=== PATIENT | female | born 2000 | race Caucasian/White ===

== ENCOUNTER 2020-07-16 00:03 | Emergency (ER) | payer OTHER, SELFPAY ==
--- NOTE | 2020-07-16 | XR_ITS ---
EXAMINATION: SHOULDER 3 VIEWS, LEFT CLINICAL INFORMATION: Pain after fall. COMPARISON: None. TECHNIQUE: AP views of the left shoulder were obtained in internal and external rotation. In addition, a Y view was obtained. FINDINGS: There are no fractures or dislocations. The humeral head is seated within a well-formed glenoid. The AC joint is intact. IMPRESSION: Unremarkable left shoulder radiographs.
[2020-07-16 00:36] VITALS: BP 112/74; PULSE 74; RESP 14; TEMP 37.4; BMI 22.3
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
[2020-07-16] MEDS: Acetaminophen 325 MG TABLET 975 MG PO (01:59)
[2020-07-16] MEDS: Ketorolac Tromethamine 15 MG/ML VIAL IM (02:00)
== END 2020-07-16 03:17 | disposition home or self-care (01) ==
PROVIDERS: Emergency Provider Student in an Organized Health Care Education/Training Program
DX: G89.11 Acute pain due to trauma (principal); M25.512 Pain in left shoulder
CPT/HCPCS: 73030; 96372; 99283; 99284; J1885

== ENCOUNTER 2020-12-06 12:25 | Outpatient (REF) | payer OTHER, SELFPAY ==
[2020-12-06 14:01] LABS: MANUAL DIFF FLAG NO
[2020-12-06 14:11] LABS: Basophils Percent Auto 0.2 % (0-2); Eosinophils Percent Auto 0.7 % (0-4); Hematocrit 42.7 % (37-47); Hemoglobin 14.6 g/dl (12.0-16.0); Imm Gran Abs Auto 0.01 X10*3/uL (0.00-0.03); Imm Gran Pct Auto 0.2 % (0.0-0.4); Lymphocytes Absolute Auto 1.5 X10*3/uL (1.2-4.9); Lymphocytes Percent Auto 33.8 % (20-40); Mean Corpuscular HGB Conc 34.2 g/dl (31.0-35.0); Mean Corpuscular Hemoglobin 31.2 pg (27.0-33.0); Mean Corpuscular Volume 91.2 fL (80-98); Mean Platelet Volume 10.8 fL (9.4-12.3); Monocytes Absolute Auto 0.2 X10*3/uL (0.1-1.2); Monocytes Percent Auto 3.9 % (2-11); Neutrophils Absolute Auto 2.8 X10*3/uL (2.0-8.3); Neutrophils Percent Auto 61.2 % (45-73); Platelet Count 310 X10*3/uL (160-400); Red Blood Count 4.68 X10*6/uL (4.20-5.50); Red Cell Distribution Width 12.7 % (11.0-16.0); White Blood Count 4.6 X10*3/uL (4.8-10.8)
[2020-12-06 14:42] LABS: Alanine Aminotransferase 22 U/L (0-31); Albumin Level 4.7 g/dL (3.5-5.0); Alkaline Phosphatase 84 U/L (39-117); Anion Gap 14 (12-20); Aspartate Amino Transferase 21 U/L (5-31); Bilirubin Total 0.5 mg/dL (0.0-1.0); Blood Urea Nitrogen 8 mg/dL (9-16); Calcium 9.6 mg/dL (8.4-10.2); Carbon Dioxide 26 mmol/L (22-29); Chloride 103 mmol/L (96-108); Estimated Glomerular Filt Rate > 60; Glucose Random 86 mg/dL (60-115); Potassium 4.5 mmol/L (3.3-5.1); Sodium 138 mmol/L (135-145)
== END 2020-12-06 12:26 | disposition home or self-care (01) ==
LOC: HO.HMGCLDS 12:25
PROVIDERS: Visit Provider Nurse Practitioner Family
DX: R10.13 Epigastric pain (principal)
CPT/HCPCS: 36415; 80053; 85025

== ENCOUNTER 2020-12-06 17:13 | Emergency (ER) | payer OTHER, SELFPAY ==
--- NOTE | ~2020-12-06 | CT_ITS ---
EXAMINATION: CT ABDOMEN AND PELVIS WITH CONTRAST CLINICAL INFORMATION: The epigastric/right lower quadrant pain COMPARISON: None TECHNIQUE: Multidetector volumetric images were obtained from the superior aspect of the liver through the pubic symphysis following administration 85 mL of Omnipaque 350 intravenous contrast. Sagittal and coronal reformatted images were obtained on the technologist's workstation. Oral contrast: No This CT examination was performed using dose optimization techniques as appropriate, variously including the following: *Automated exposure control *Adjustment of mA and/or kV according to patient size (this includes techniques or standardized protocols for targeted exams where dose is matched to indication/reason for exam; i.e. extremities or head) *Use of iterative reconstruction technique DLP: 361 mGy-cm FINDINGS: LUNG BASES: The visualized lung bases are unremarkable. LIVER, GALLBLADDER, AND BILIARY TREE: The liver is normal in size, shape, and attenuation. No focal hepatic lesion or biliary ductal dilatation is present. The gallbladder is contracted but otherwise unremarkable with no evidence of radiopaque gallstones, gallbladder wall thickening, or obvious pericholecystic inflammatory changes. PANCREAS: Unremarkable. SPLEEN: Unremarkable. ADRENAL GLANDS: Unremarkable. KIDNEYS AND URETERS: The kidneys are normal in size, shape, and attenuation. No hydronephrosis, hydroureter, or calculi seen. No perinephric stranding. BLADDER: Unremarkable. GASTROINTESTINAL TRACT: A small hiatal hernia is present. A large stool burden is present throughout the colon. The small and large bowel are otherwise unremarkable. The appendix is unremarkable. ABDOMINAL WALL: No significant hernia is appreciated. LYMPH NODES: Normal. VASCULAR: Unremarkable. PELVIC VISCERA: An anteverted uterus is present. A collapsed enhancing right ovarian cyst is present OSSEOUS STRUCTURES: Unremarkable. CT/CT abdomen pelvis w IV con IMPRESSION: A definitive cause for the patient's acute epigastric/right lower quadrant pain has not been found. The appendix is normal. There is a cyst in the right adnexa which appears to be partially collapsed. Possibly this could be related to the patient's pain.
[2020-12-06 18:37] VITALS: BP 115/79; PULSE 93; RESP 16; TEMP 36.7; O2SAT 100; BMI 23.0
[2020-12-06] MEDS: 0.9 % Sodium Chloride 1,000 ML 999 ML IV (18:58)
[2020-12-06 19:03] LABS: UPreg QC Valid YES; Urine Pregnancy NEGATIVE (NEGATIVE)
[2020-12-06 19:30] LABS: Glucose Urine UA NEG (NEG); Leukocyte Esterase Urine NEG (NEG); Nitrite Urine NEG (NEG); Urine Blood NEG (NEG); Urine Ketones NEG (NEG); Urine Protein NEG (NEG-TRACE)
[2020-12-06 19:31] LABS: Appearance Urine CLOUDY; Color Urine YELLOW
[2020-12-06 20:01] VITALS: BP 106/64; PULSE 87; RESP 15; O2SAT 98
[2020-12-06] MEDS: iohexoL 350 MG/ML 100 ML INFUS..BTL IV (20:06)
--- NOTE | 2020-12-06 21:00 | ED_ITS ---
HPI - Abdominal Pain General Chief Complaint: Abdominal Pain Stated Complaint: Abd pain Time Seen by Provider: 12/06/20 18:26 Source: patient Mode of arrival: ambulatory Limitations: no limitations History of Present Illness HPI narrative: Otherwise healthy 20-year-old female who denies significant past medical or surgical history presenting with complaint of diffuse abdominal pain for the past 5 days states she has not had a bowel movement and about 5 or 6 days. States she was seen at Urgent Care today however pain persist and she does not feel better. There is some associated nausea. States she never had issues with constipation. There is no current medications or any new dietary changes. MD elicited complaint: abdominal pain Pertinent past history: constipation Onset (ago): day(s) (Five days) Location: diffuse Severity: severe Quality: aching and fullness Radiation: none Migration to: no migration Associated symptoms: nausea Related Data Previous Rx's Medication Instructions Recorded ketorolac 10 mg PO Q6H PRN 5 Days #20 tab 07/16/20 famotidine 20 mg tablet 20 mg PO DAILY #30 tab 12/06/20 magnesium citrate 300 ml PO DAILY PRN #296 ml 12/06/20 ondansetron 4 mg disintegrating 4 mg PO Q6H PRN #30 tab 12/06/20 tablet ondansetron HCl [Zofran] 4 mg PO Q8H PRN #10 tab 12/06/20 polyethylene glycol 3350 [Miralax] 17 g PO DAILY #30 ea 12/06/20 Allergies Allergy/AdvReac Type Severity Reaction Status Date / Time No Known Allergies Allergy Unverified 11/06/20 13:39 [No Known Allergies*] Review of Systems Review of Systems Constitutional: No Weight loss, No Fever, No Chills, No Night Sweats, No Fatigue, No Malaise ENT/Mouth: No Hearing loss, No Ear Pain, No Nasal Congestion, No Sinus Pain, No Hoarseness, No sore throat, No Rhinorrhea, No Swallowing Difficulty Eyes: No Eye Pain, No Swelling, No Redness, No Foreign Body, No Discharge, No Vision Changes Cardiovascular: No Chest Pain, No SOB, No Dyspnea on Exertion, No Orthopnea, No Edema, No Palpitations Respiratory: No Cough, No Sputum, No Wheezing, No Smoke Exposure, No Dyspnea Gastrointestinal: + Nausea, No Vomiting, No Diarrhea, + Constipation, No abdominal Pain, No Hematochezia, No Melena Genitourinary: no irregular bleeding, No Dysuria, No Urinary Frequency, No Hematuria, No Urinary Incontinence, No Urgency, No Flank Pain, No Urinary Flow Changes, No Hesitancy Musculoskeletal: No joint pain, No Myalgias, No Joint Swelling Skin: No Skin Lesions, No rash Neuro: No Weakness, No Numbness, No Paresthesias, No Loss of Consciousness, No Dizziness, No Headache Psych: No Social Issues Heme/Lymph: No Bruising, No Bleeding,No Lymphadenopathy Endocrine: No Polyuria, No Polydipsia, No Temperature Intolerance Yes all other systems are reviewed and are negative Physical Exam Vital Signs: Vital Signs: Last Vital Signs Temp 98.1 F 12/06/20 18:37 Pulse 87 12/06/20 20:01 Resp 15 12/06/20 20:01 BP 106/64 12/06/20 20:01 Pulse Ox 98 12/06/20 20:01 Body Mass Index 23.0 Reviewed Const: Other: Walked in from the waiting room Appears stated age General: cooperative; No acute distress or intoxicated appearing Nutritional Appearance: average body habitus Orientation/consciousness: patient oriented x3 HENMT: Head: Yes normal to inspection Ears: hearing grossly normal bilaterally Eyes: General: appearance normal, both eyes and all related structures Visual Rush: normal visual rush by confrontation Neck: Neck: Yes normal visual inspection, No positive Brudzinski's sign, No positive Kernig's sign and No tender Thyroid: Thyroid normal Chest: Chest palpation & inspection: normal inspection of the chest Resp: Effort & Inspection: normal respiratory effort Auscultation: clear to auscultation bilaterally Cardio: Jugular venous distension: no JVD Rhythm: regular rhythm Heart sounds: S1 normal heart sound present and S2 normal heart sound present GI: Inspection: Yes distended Palpation (GI): Firmness to palpation present (GI) Percussion: Yes dullness to percussion, No Fluid wave present and No tympanic to percussion Auscultation: Hypoactive bowel sounds present Rectal Exam - Female: deferred : General: Yes no CVA tenderness Back/Spine/Pelvis: Back: no CVA tenderness Skin: General skin exam: no rashes or lesions noted Neuro: General: patient oriented x3 Extrem: General: Yes normal to inspection Course Course Course Narrative: Vomiting in the ED. CT of the abdomen pelvis shows large stool burden throughout the colon. The small and large bowels are otherwise unremarkable. The appendix is unremarkable. Will start her on MiraLax and p.r.n. magnesium citrate until she has a bowel movement. Clear return instructions provided. Comfortable plan. MDM - Abdominal Pain MDM Narrative Medical decision making narrative: Labs done at 11:53 this a.m. at the associated walk-in clinic these were reviewed. Deferred on repeat will go ahead and get CT of the abdomen pelvis rule out acute obstructive pathology. Differential Diagnosis Differential diagnosis: Likely abdominal pain, bowel perforation, constipation and small bowel obstruction; Unlikely aortic dissection, acute appendicitis, calculus of kidney, diverticulitis, endometriosis, gastroenteritis, gastritis, mesenteric ischemia, ovarian cyst, pancreatitis, peptic ulcer disease and renal colic Medical Records Attestation: I reviewed the patient's medical records. Lab Data Attestation: I reviewed the patient's lab results. Labs: Lab Results 12/06/20 12/06/20 Range/Units 18:41 18:53 Urine Color YELLOW Urine Appearance CLOUDY Urine pH 8.0 (5.0-8.0) Ur Specific [place] 1.020 (1.005-1.025) Urine Protein NEG (NEG-TRACE) MG/DL Urine Glucose (UA) NEG (NEG) MG/DL Urine Ketones NEG (NEG) MG/DL Urine Blood NEG (NEG) Urine Nitrite NEG (NEG) Ur Leukocyte Esterase NEG (NEG) Urine Test NEGATIVE (NEGATIVE) Discharge Plan Discharge Clinical Impression: Constipation Patient Disposition: Home, Self-Care Instructions: Constipation (ED) Prescriptions: New polyethylene glycol 3350 [Miralax] 17 gram powder in packet 17 g PO DAILY Qty: 30 RF: 0 magnesium citrate Solution 300 ml PO DAILY PRN (Reason: constipation) Qty: 296 RF: 0 ondansetron HCl [Zofran] 4 mg tablet 4 mg PO Q8H PRN (Reason: nausea and vomiting) Qty: 10 RF: 0 No Action ketorolac 10 mg tablet 10 mg PO Q6H PRN (Reason: pain) 5 Days Qty: 20 RF: 0 famotidine [Pepcid AC] 20 mg tablet 20 mg PO DAILY Qty: 30 RF: 0 ondansetron 4 mg tablet,disintegrating 4 mg PO Q6H PRN (Reason: nausea and vomiting) Qty: 30 RF: 0 Referrals: Olivia Martinez MD [Primary Care Provider] - 1 week Interventions: ED Discharge Assessment Last Done: 12/06/20 21:37 Discharge Date/Time: 12/06/20 21:38 [facility] Past Medical History Medical History Cyst, breast Cyst, breast Social History Social History Alcohol intake: unknown Smoking Status: Smoker, status unknown Use of substances other than those prescribed or required for medical reasons: Unknown Advance Directives: No Advance Directives Information Provided: Yes
== END 2020-12-06 21:38 | disposition home or self-care (01) ==
PROVIDERS: Nurse Practitioner Primary Care; Emergency Provider Emergency Medicine; PCP Internal Medicine
DX: R10.9 Unspecified abdominal pain (principal); K59.00 Constipation, unspecified; R11.2 Nausea with vomiting, unspecified; Z79.899 Other long term (current) drug therapy
CPT/HCPCS: 74177; 81003; 81025; 96360; 99284; Q9967

== ENCOUNTER 2021-02-03 | Outpatient (REF) | payer OTHER, SELFPAY | END 2021-02-03 00:01 | disposition home or self-care (01) | LOC: HO.LNP | PROVIDERS: Visit Provider Physician Assistant Medical | DX: Z20.822 Contact with and (suspected) exposure to COVID-19 (principal); R59.0 Localized enlarged lymph nodes | CPT/HCPCS: U0003; U0005 ==

== ENCOUNTER 2021-02-07 18:06 | Emergency (ER) | payer OTHER, SELFPAY ==
[2021-02-07 18:15] VITALS: BP 115/56; PULSE 93; RESP 18; TEMP 36.6; O2SAT 98; BMI 22.3
--- NOTE | 2021-02-07 20:23 | ED_ITS ---
HPI - URI/Sore Throat General Chief Complaint: Upper Respiratory Symptoms Stated Complaint: STREPT? Source: patient Mode of arrival: ambulatory Limitations: no limitations History of Present Illness HPI Narrative: 20-year-old female with no significant past medical history presents with several days of sore throat, swollen lymph nodes, swollen tonsils with white exudates, and difficulty swallowing. She does not report a cough, fevers, chills, chest pain or pressure, palpitations, shortness of breath, abdominal pain, abdominal distention, dysuria, hematuria, and any other concerning symptoms. MD elicited complaint: sore throat and nasal congestion Onset (ago): day(s) Consistency: constant Severity: moderate Pain scale (0-10): 6 Able to tolerate fluids by mouth: Yes Exacerbating factors: swallowing Relieving factors: NSAID Associated symptoms: denies other symptoms Treatments prior to arrival: acetaminophen and ibuprofen Related Data Previous Rx's Medication Instructions Recorded ketorolac 10 mg PO Q6H PRN 5 Days #20 tab 07/16/20 famotidine 20 mg tablet 20 mg PO DAILY #30 tab 12/06/20 magnesium citrate 300 ml PO DAILY PRN #296 ml 12/06/20 ondansetron 4 mg disintegrating 4 mg PO Q6H PRN #30 tab 12/06/20 tablet ondansetron HCl [Zofran] 4 mg PO Q8H PRN #10 tab 12/06/20 polyethylene glycol 3350 [Miralax] 17 g PO DAILY #30 ea 12/06/20 amoxicillin-pot clavulanate 1 tab PO Q12H 10 Days #20 tab 02/07/21 [Augmentin] ibuprofen 600 mg PO Q8H PRN #20 tab 02/07/21 Allergies Allergy/AdvReac Type Severity Reaction Status Date / Time No Known Allergies Allergy Verified 02/07/21 18:18 [No Known Allergies*] Review of Systems Review of Systems: Constitutional: No Fever, No Chills ENT/Mouth: Positive sore throat, positive swollen tonsils with white exudates, No Ear Pain, No Hoarseness Eyes: No Eye Pain, No Swelling, No Redness, No Foreign Body Cardiovascular: No Chest Pain, No SOB Respiratory: No Cough, No Dyspnea Gastrointestinal: No Nausea, No Vomiting, No Diarrhea, No abdominal Pain Genitourinary: No Dysuria, No Hematuria Musculoskeletal: positive joint pain, No Myalgias, No Joint Swelling Skin: No Skin lacerations, No rash Neuro: No Weakness, No Numbness, No Paresthesias, No Loss of Consciousness, No Dizziness, No Headache Psych: No Anxiety/Panic, No Depression Heme/Lymph: no easy bruising, no Lymphadenopathy Endocrine: No Polyuria, No Polydipsia Yes all other systems are reviewed and are negative [facility] Past Medical History Attestation statement: The following information was validated with the patient. Source: old records reviewed Medical History Cyst, breast Cyst, breast Social History Social History Alcohol intake: unknown Smoking Status: Smoker, status unknown Advance Directives: No Advance Directives Information Provided: Yes Physical Exam Vital Signs: Vital Signs: Last Vital Signs Temp 97.9 F 02/07/21 20:39 Pulse 84 02/07/21 20:39 Resp 18 02/07/21 20:39 BP 121/83 02/07/21 20:39 Pulse Ox 100 02/07/21 20:39 Body Mass Index 22.3 Appearance: Alert. Oriented X3. No acute distress. Eyes: Pupils equal, round and reactive to light. ENT: Pharynx erythematous with tonsillar swelling and exudate bilaterally Neck: Normal inspection. Neck supple. Bilateral cervical lymphadenopathy CVS: Normal heart rate and rhythm. Pulses normal. Respiratory: No respiratory distress. Breath sounds normal. Abdomen: Soft and nontender. Skin: Skin warm and dry. Normal skin color. Normal skin turgor. Extremities: No lower extremity edema. Neuro: No motor deficit. No sensory deficit. Course Course Course Narrative: 20-year-old female with no significant past medical history presents with several days of upper respiratory symptoms, sore throat, dif ficulty swallowing, swollen tonsils with tonsillar exudates, and bilateral cervical lymphadenopathy. Patient appears positive for strep pharyngitis, however test is negative. We will treat with antibiotics, Monospot is pending. Patient verbalized understanding of and agrees to plan of care discharge home. 12:58 a.m. Monospot is positive. Telephone discussion or with patient regarding positive mono test and need to follow-up with primary care physician, and to refrain from full contact sports. MDM - URI/Sore Throat Differential Diagnosis Differential diagnosis: Likely upper respiratory infection, viral infection and pharyngitis Medical Records Attestation: I reviewed the patient's medical records. Lab Data Attestation: I reviewed the patient's lab results. Labs: Lab Results 02/07/21 Range/Units 20:45 Monoscreen Positive A (Negative) Discharge Plan Discharge Clinical Impression: Pharyngitis Patient Disposition: Home, Self-Care Instructions: Pharyngitis (ED), Strep Throat (ED) Additional Instructions: You were evaluated for a sore throat. Your physical exam was consistent with strep pharyngitis. I am treating you with Augmentin. Augmentin as an antibiotic. Please take medication as directed and complete the entire course. Your mono spot test is pending. We will call you with your results. Thank you for choosing this emergency department for evaluation. Please follow-up with primary care physician as needed. Return to the emergency department for any new, concerning, or worsening symptoms. Prescriptions: New amoxicillin-pot clavulanate [Augmentin] 875-125 mg tablet 1 tab PO Q12H 10 Days Qty: 20 RF: 0 ibuprofen 600 mg tablet 600 mg PO Q8H PRN (Reason: fever or pain) Qty: 20 RF: 0 No Action polyethylene glycol 3350 [Miralax] 17 gram powder in packet 17 g PO DAILY Qty: 30 RF: 0 magnesium citrate Solution 300 ml PO DAILY PRN (Reason: constipation) Qty: 296 RF: 0 ondansetron HCl [Zofran] 4 mg tablet 4 mg PO Q8H PRN (Reason: nausea and vomiting) Qty: 10 RF: 0 ketorolac 10 mg tablet 10 mg PO Q6H PRN (Reason: pain) 5 Days Qty: 20 RF: 0 famotidine [Pepcid AC] 20 mg tablet 20 mg PO DAILY Qty: 30 RF: 0 ondansetron 4 mg tablet,disintegrating 4 mg PO Q6H PRN (Reason: nausea and vomiting) Qty: 30 RF: 0 Interventions: ED Discharge Assessment Last Done: 02/07/21 21:28 Discharge Date/Time: 02/07/21 21:28
[2021-02-07 20:39] VITALS: BP 121/83; PULSE 84; RESP 18; TEMP 36.6; O2SAT 100
[2021-02-07] MEDS: Amoxicillin/Potassium Clav 875 MG TABLET PO (20:52)
[2021-02-07] MEDS: Ibuprofen 600 MG TABLET PO (20:52)
[2021-02-07 21:25] LABS: Monotest Positive (Negative)
== END 2021-02-07 21:28 | disposition home or self-care (01) ==
PROVIDERS: Nurse Practitioner Family; Emergency Provider Internal Medicine; PCP Internal Medicine
DX: J02.0 Streptococcal pharyngitis (principal)
CPT/HCPCS: 36415; 86308; 87071; 87880; 99283

== ENCOUNTER 2022-10-11 19:36 | Outpatient (REF) | payer OTHER, SELFPAY ==
[2022-10-11 20:23] LABS: Influenza A PCR POSITIVE (Negative); Influenza B PCR NEGATIVE (Negative); Resp Syncy Virus RNA Qual PCR NEGATIVE (Negative); SARS COV2 PCR INHOUSE NEGATIVE (Negative)
== END 2022-10-11 19:37 | disposition home or self-care (01) ==
LOC: HO.LNP 19:36
PROVIDERS: Visit Provider Physician Assistant Medical
DX: Z20.822 Contact with and (suspected) exposure to COVID-19 (principal); R05.9 Cough, unspecified
CPT/HCPCS: 0241U

== ENCOUNTER 2024-02-09 09:51 | Outpatient (AMB) | payer OTHER, SELFPAY ==
[2024-02-09 11:10] VITALS: BP 114/66; PULSE 83; TEMP 37; O2SAT 99; BMI 24.1
--- NOTE | 2024-02-09 11:10 | MHC.OFFWIV ---
Intake Vital Signs 02/09/24 11:10 Height 5 ft 4 in Weight 140 lb 8 oz BMI 24.1 BP 114/66 Blood Pressure Location Lt brachial Position Sitting Pulse 83 Pulse Source Pulse Oximeter Temp 98.6 F Temp Source Oral Pulse Oximetry (%) 99 Oxygen Delivery Method Room Air Intake Visit Reasons: EP Upper AB pain/nausea Intake Note: Pt presents to the office today for c/o upper abdominal pain and nausea that started a few months ago. She states it got better but within the past week it has gotten worse again. She states she gets this pain after eating usually. Patient Tobacco Use Status: Never used Tobacco Allergies No Known Allergies [No Known Allergies*] Allergy (Verified 02/09/24 11:38) Medication List - Last Reconciled 02/09/24 by Huey Maurer MD naproxen 500 mg PO BID PRN 14 days HPI EP Upper AB pain/nausea HPI Details 23 yr old female presents to the office for a sick visit. 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 She is accompanied by a female friend. She reports abdominal pain in the past week. Symptoms are worse after eating. Accompanied by nausea and burping. Occasional diarrhea. No fevers or chills. [facility] Medical History Cyst, breast Cyst, breast Social History Alcohol intake: unknown Patient Tobacco Use Status: Never used Tobacco Physical Exam Vital Signs: Last Vital Signs Temp 98.6 F 02/09/24 11:10 Pulse 83 02/09/24 11:10 BP 114/66 02/09/24 11:10 Pulse Ox 99 02/09/24 11:10 Oxygen Delivery Method Room Air 02/09/24 11:10 BMI result Body Mass Index 24.1 Const General: cooperative and healthy appearing Nutritional Appearance: well nourished Orientation/consciousness: patient oriented x3 Limitations: no limitations HEENT Head: Yes normal to inspection Eyes General: appearance normal, both eyes and all related structures Neck Neck: Yes normal visual inspection Chest Chest palpation & inspection: normal palpation of entire chest wall Resp Effort & Inspection: normal respiratory effort GI Other: Abdomen: Bowel sounds positive. No organomegaly. No tenderness. Neuro General: patient oriented x3 Assessment & Plan Assessment & Plan (1) Abdominal pain: Code(s): R10.9 - Unspecified abdominal pain Plan: Blood work has been ordered. Ppi has been ordered. Pantoprazole has been called in. If symptoms do not improve to follow-up here. Orders: Orders Basic Metabolic Panel Today R10.9 - Unspecified abdominal pain Complete Blood Count no Diff Today R10.9 - Unspecified abdominal pain Liver Panel Today R10.9 - Unspecified abdominal pain Erythrocyte Sedimentation Rate Today R10.9 - Unspecified abdominal pain Coding Level of Care Code Est Pt Level 4 (63883) Diagnoses Abdominal pain R10.9
== END 2024-02-09 12:06 | disposition home or self-care (01) ==
PROVIDERS: PCP Internal Medicine; Visit Provider Internal Medicine
DX: R10.9 Unspecified abdominal pain (principal)
CPT/HCPCS: 99214

== ENCOUNTER 2024-02-09 12:02 | Outpatient (REF) | payer OTHER, SELFPAY ==
[2024-02-09 13:31] LABS: Hematocrit 38.9 % (37.0-47.0); Hemoglobin 12.8 g/dl (12.0-16.0); Mean Corpuscular HGB Conc 32.9 g/dl (31.0-35.0); Mean Platelet Volume 10.4 fL (9.4-12.3); Platelet Count 311 X10*3/uL (160-400); Red Blood Count 4.42 X10*6/uL (4.20-5.50); Red Cell Distribution Width 15.3 % (11.0-16.0); White Blood Count 3.1 X10*3/uL (4.8-10.8)
[2024-02-09 14:00] LABS: Erythrocyte Sedimentation Rate 10 MM/HR (0-20)
[2024-02-09 14:02] LABS: Alanine Aminotransferase 27 U/L (0-31); Alkaline Phosphatase 82 U/L (39-117); Anion Gap 8 (12-20); Aspartate Amino Transferase 38 U/L (5-31); Bilirubin Direct < 0.2 mg/dL (0.0-0.5); Bilirubin Total 0.2 mg/dL (0.0-1.0); Blood Urea Nitrogen 8 mg/dL (9-16); Calcium 8.9 mg/dL (8.4-10.2); Carbon Dioxide 30 mmol/L (22-29); Chloride 104 mmol/L (96-108); Estimated Glomerular Filt Rate > 60; Glucose Random 74 mg/dL (60-115); Potassium 3.7 mmol/L (3.3-5.1); Sodium 138 mmol/L (135-145); Total Protein 7.1 g/dL (6.5-8.0)
== END 2024-02-09 12:03 | disposition home or self-care (01) ==
LOC: HO.HMGCLDS 12:02
PROVIDERS: PCP Internal Medicine; Visit Provider Internal Medicine
DX: R10.9 Unspecified abdominal pain (principal)
CPT/HCPCS: 36415; 80048; 80076; 85027; 85652

== ENCOUNTER 2024-02-16 11:54 | Outpatient (REF) | payer OTHER, SELFPAY ==
--- NOTE | ~2024-02-16 | CT_ITS ---
EXAMINATION: CT ABDOMEN AND PELVIS WITH CONTRAST CLINICAL INFORMATION: Right lower quadrant pain COMPARISON: CT abdomen pelvis December 06, 2020 TECHNIQUE: Multidetector volumetric images were obtained from the superior aspect of the liver through the pubic symphysis following administration 85 mL of Omnipaque 350 intravenous contrast. Sagittal and coronal reformatted images were obtained on the technologist's workstation. Oral contrast: Yes This CT examination was performed using dose optimization techniques as appropriate, variously including the following: *Automated exposure control *Adjustment of mA and/or kV according to patient size (this includes techniques or standardized protocols for targeted exams where dose is matched to indication/reason for exam; i.e. extremities or head) *Use of iterative reconstruction technique DLP: 298 mGy-cm FINDINGS: Visualized lung bases are well aerated. The liver is normal in size. The gallbladder is normal in appearance. The pancreas, spleen and adrenal glands are unremarkable. Normal caliber loops of small bowel. Moderate stool burden throughout the majority of colon. Unremarkable appendix. Normal caliber abdominal aorta. No gross retroperitoneal lymphadenopathy. Bladder is normal in appearance. Unremarkable CT appearance of the uterus. Small amount of free pelvic fluid is likely physiologic in a female of this age. No inguinal lymphadenopathy. No acute osseous abnormality. CT/CT abdomen pelvis w IV con IMPRESSION: 1. No CT evidence for acute abnormality within the abdomen or pelvis. 2. Moderate stool burden throughout the colon suggesting constipation. Fleischner guidelines were followed.
[2024-02-16] MEDS: iohexoL 350 MG/ML 100 ML INFUS..BTL 85 ML IV (14:12)
[2024-02-16] MEDS: Barium Sulfate Oral (Vanilla) 450 ML ORAL.SUSP 900 ML PO (14:13)
== END 2024-02-16 11:55 | disposition home or self-care (01) ==
LOC: HO.CT 11:54
PROVIDERS: PCP Internal Medicine; Visit Provider Internal Medicine
DX: R10.31 Right lower quadrant pain (principal)
CPT/HCPCS: 74177; Q9967

== ENCOUNTER 2024-07-12 08:34 | Outpatient (AMB) | payer OTHER, SELFPAY ==
[2024-07-12 08:35] VITALS: BP 112/58; PULSE 82; O2SAT 97; BMI 23.5
--- NOTE | 2024-07-12 08:35 | A.OFFVIS_ITS ---
Vital Signs 07/12/24 08:35 Height 5 ft 4 in Weight 136 lb 10.986 oz BMI 23.5 BP 112/58 L Blood Pressure Location Rt brachial Position Sitting Pulse 82 Pulse Source Pulse Oximeter Pulse Oximetry (%) 97 Oxygen Delivery Method Room Air Intake Visit Reasons: Epigastric Pain, initial assessment. Intake Note: Micah presents in office today for a scheduled initial assessment. CC; Pt reports that they have been experiencing these issues with GERD and epigastric pain since August of last year. Pt reports that since they have started the pantoprazole they have been doing better. Pt also reports that they have periodic breakthrough sx but are doing OK more often than not. Pt does report intermittent difficulties with nausea related to the GERD sx. Pt describes the epigastric pain as a weird, throbbing pain... Pt does also report having some mild pain and pressure in the LLQ almost into their flank. Pt does report that the pain is worse while running. 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 Pt denies any prior hx of colo or EGD. Pt states that family does have frequent hx of stomach issues. Pt is unsure as to the specific details. Pt does have a hx of a cousin that passed due to gallbladder and stomach cancer. 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 Patient was sent to us by her PCP. Patient reports symptoms of epigastric pain postprandially started in August. Patient reports that she had epigastric discomfort and nausea no med what she ate. Patient had CT scan done in February of this year that showed no acute processes. Patient was surprised to learn that she was constipated as she states that she is moving her bowels almost every day. Patient reports occasional sharp pain in the left upper quadrant with activity. Patient was playing softball yesterday and had left upper quadrant pain when she was running. Pain felt like cramping without any radiation to any area. Patient denies any melena, hematochezia. Patient was placed on the pantoprazole and states that her symptoms currently are suppressed. Patient has been off PPI for the past few weeks and she has been feeling well. Patient reports that she is feeling well. Denies any GI concerning symptoms today. [facility] Medical History Chronic GERD Cyst, breast Cyst, breast Social History Alcohol intake: current Alcohol intake frequency: a few times a month Comment: Socially. Patient Tobacco Use Status: Never used Tobacco Use of substances other than those prescribed or required for medical reasons: No Review of Systems Const Denies weight gain and Denies weight loss ENT Reports no additional complaints, Denies dysphagia and Denies odynophagia Card Reports no additional complaints Resp Reports no additional complaints GI Reports abdominal pain (LUQ), Denies belching, Denies melena, Denies bloating, Denies change in bowel habits, Denies dysphagia, Denies excessive flatus, Denies dyspepsia, Denies diarrhea, Denies loose stools, Denies nausea, Denies odynophagia and Denies vomiting Reports no additional complaints Musc Reports no additional complaints Neuro Reports no additional complaints Psych Reports no additional complaints Endo Reports no additional complaints Physical Exam Vital Signs: Last Vital Signs Pulse 82 07/12/24 08:35 BP 112/58 L 07/12/24 08:35 Pulse Ox 97 07/12/24 08:35 Oxygen Delivery Method Room Air 07/12/24 08:35 BMI result Body Mass Index 23.5 Const General: healthy appearing, no acute distress and well developed Nutritional Appearance: well nourished Orientation/consciousness: patient oriented x3 Resp Effort & Inspection: normal respiratory effort, able to speak in complete sentences, no tracheal deviation and symmetric chest movement Auscultation: clear to auscultation bilaterally Cardio Rate: regular rate GI Inspection: Yes normal to inspection and No distended Palpation (GI): Soft to palpation, not firm, nontender and No hepatosplenomegaly present Auscultation: normal bowel sounds General: Yes no CVA tenderness Back/Spine/Pelvis Back: no CVA tenderness Skin General skin exam: elasticity normal, turgor normal and dry skin Neuro General: patient oriented x3 Psych Appearance: grossly normal Mental Status: mental status grossly normal Assessment & Plan Assessment & Plan (1) Constipation: Code(s): K59.00 - Constipation, unspecified Category: Medical Qualifiers: Constipation type: slow transit constipation Qualified Code(s): K59.01 - Slow transit constipation (2) Epigastric abdominal pain: Code(s): R10.13 - Epigastric pain Category: Medical Plan Avoid dietary triggers and late night snacking. Staying upright for minimum 3 hours after meals discussed with patient. Patient reports that she has been feeling well. Denies any GI concerning symptoms in the past few weeks Patient will follow-up with us on as-needed basis. Patient is agreeable to current plan of care and verbalizes understanding of instructions. She was given the opportunity to ask questions and all questions answered. Thank you for allowing me to participate in her care Medications: Discontinued pantoprazole Discontinued Reason: Patient no longer taking 40 mg PO DAILY 30 tabs 0RF prochlorperazine maleate (Compazine) Discontinued Reason: Patient no longer taking 5 mg PO BID PRN 10 tabs 0RF nausea and vomiting Coding Level of Care Code New Pt Level 3 (40055) Diagnoses Slow transit constipation K59.01 Constipation type: slow transit constipation Epigastric abdominal pain R10.13 Time Spent (min) 40 Comment 30 minutes spent with patient and additional 10 minutes spent reviewing her records
== END 2024-07-12 09:14 | disposition home or self-care (01) ==
PROVIDERS: PCP Internal Medicine; Visit Provider Nurse Practitioner Family
DX: K59.01 Slow transit constipation (principal); R10.13 Epigastric pain
CPT/HCPCS: 99203

== ENCOUNTER → 2024-07-12 08:34 | Outpatient (BNVA) | payer OTHER, SELFPAY | PROVIDERS: PCP Internal Medicine; Visit Provider Nurse Practitioner Family ==

== ENCOUNTER 2025-03-18 08:16 | Outpatient (AMB) | payer OTHER, SELFPAY ==
[2025-03-18 08:36] VITALS: BP 90/64; PULSE 77; RESP 15; TEMP 37; O2SAT 100; BMI 22.8
--- NOTE | 2025-03-18 08:36 | MHC.OFFWIV ---
Intake Vital Signs 03/18/25 08:36 Height 5 ft 4 in Weight 133 lb BMI 22.8 BP 90/64 Blood Pressure Location Lt brachial Position Sitting Respiration 15 Pulse 77 Pulse Source Pulse Oximeter Temp 98.6 F Temp Source Oral Pulse Oximetry (%) 100 Oxygen Delivery Method Room Air Intake Visit Reasons: EP-vomiting, diarrhea Intake Note: Pt is here today c/o vomiting and diarrhea started yesterday Patient Tobacco Use Status: Never used Tobacco Allergies No Known Allergies [No Known Allergies*] Allergy (Verified 03/18/25 08:45) HPI EP-vomiting, diarrhea HPI Details This is a 24-year-old female patient who presents to the walk-in clinic today with report of vomiting and diarrhea which started last evening. She states that she eating a sandwich from a restaurant, and shortly after, developed nausea, vomiting, diarrhea, sweats, which lasted until about 4am today. Denies any known exposure to sick contacts. She denies any abdominal pain, dizziness, or fever. States that she has not been able to tolerate much food/fluids. 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 [facility] Medical History Chronic GERD Cyst, breast Cyst, breast Social History Alcohol intake: current Alcohol intake frequency: a few times a month Comment: Socially. Patient Tobacco Use Status: Never used Tobacco Physical Exam Vital Signs: Last Vital Signs Temp 98.6 F 03/18/25 08:36 Pulse 77 03/18/25 08:36 Resp 15 03/18/25 08:36 BP 90/64 03/18/25 08:36 Pulse Ox 100 03/18/25 08:36 Oxygen Delivery Method Room Air 03/18/25 08:36 BMI result Body Mass Index 22.8 Const General: cooperative and no acute distress Limitations: no limitations HEENT Head: Yes normal to inspection Ears: hearing grossly normal bilaterally Resp Effort & Inspection: normal respiratory effort Auscultation: clear to auscultation bilaterally Cardio Rate: regular rate Rhythm: regular rhythm GI Palpation (GI): Soft to palpation (nontender) Auscultation: normal bowel sounds Skin General skin exam: no rashes or lesions noted Extrem General: Yes capillary refill normal Psych Appearance: grossly normal Mental Status: mental status grossly normal Speech and movement: Normal speech and movement present Assessment & Plan Assessment & Plan (1) Gastroenteritis: Code(s): K52.9 - Noninfective gastroenteritis and colitis, unspecified Plan: Symptoms consistent with gastroenteritis related to possible food-borne illness. She has not had episode of vomiting/diarrhea in about 5 hours. She is still feeling some nausea. I will prescribe her some Zofran for this, which we reviewed indications, use, possible side effects of. I encouraged her to purchase an electrolyte drinks such as Gatorade for some fluid/electrolyte replacement, and when she is ready, she can start with bland foods and advance diet as tolerated. If she does not continue to improve with time and these measures, she can return to the clinic, or if she develops severe symptoms or weakness/dizziness, she should go to the emergency department for evaluation. She verbalizes understanding and agrees to plan. Work note provided. Medications: New ondansetron HCl 4 mg PO Q8H PRN 12 tabs 0RF nausea and vomiting K52.9 - Noninfective gastroenteritis and colitis, unspecified Coding Level of Care Code Est Pt Level 4 (30897) Diagnoses Gastroenteritis K52.9
== END 2025-03-18 09:12 | disposition home or self-care (01) ==
PROVIDERS: PCP Internal Medicine; Visit Provider Nurse Practitioner Family
DX: K52.9 Noninfective gastroenteritis and colitis, unspecified (principal)

== ENCOUNTER → 2025-03-18 08:16 | Outpatient (BNVA) | payer OTHER, SELFPAY | PROVIDERS: PCP Internal Medicine ==

== ENCOUNTER 2025-06-18 11:48 | Outpatient (REF) | payer OTHER, SELFPAY ==
--- NOTE | ~2025-06-18 | XR_ITS ---
CLINICAL HISTORY: S99.911A - Unspecified injury of right ankle, initial encounter 2 view right ankle Comparison: None provided Findings: 7 mm ossific body distal to the lateral malleolus of uncertain age. No dislocation. Symmetric ankle mortise. No significant arthritic change or erosions. No ankle effusion. No radiopaque foreign body. IMPRESSION: There is a bone fragment distal to the lateral malleolus of uncertain age. This document has been electronically signed by: Radha Goodrich MD on 06/18/2025 13:39:33
--- NOTE | ~2025-06-18 | XR_ITS ---
CLINICAL HISTORY: S99.911A - Unspecified injury of right ankle, initial encounter 3 view right foot Comparison: None provided Findings: Bones intact. No dislocations. No significant arthritic change or erosions. No ankle effusion. No radiopaque foreign body. IMPRESSION: 1. No acute findings. This document has been electronically signed by: Radha Goodrich MD on 06/18/2025 13:40:04
== END 2025-06-18 11:49 | disposition home or self-care (01) ==
LOC: HO.HMGCX 11:48
PROVIDERS: PCP Internal Medicine; Visit Provider Nurse Practitioner Family
DX: S93.401A Sprain of unspecified ligament of right ankle, initial encounter (principal); Y93.02 Activity, running; Y92.69 Other specified industrial and construction area as the place of occurrence of the external cause; Y99.0 Civilian activity done for income or pay; Z02.6 Encounter for examination for insurance purposes
CPT/HCPCS: 73600; 73630; 99212

== ENCOUNTER 2025-06-18 11:48 | Outpatient (AMB) | payer OTHER, SELFPAY ==
[2025-06-18 13:06] VITALS: BP 98/70; PULSE 93; RESP 16; TEMP 36.6; O2SAT 100; BMI 22.3
--- NOTE | 2025-06-18 13:06 | AM.OFFWIN_ITS ---
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 - Right foot and ankle injury while arre sting a suspect on an uneven sidewalk 06/17/25 - Immediate limping post-injury; swellin g noted by the patient later at home. - Tried Motrin for pain management. - Describes sharp pain with specific chloe t movements; tenderness localized laterally. - Previous similar ankle injury at [place]. Review of Systems - Musculoskeletal: Reports right foot an d ankle pain, limping, lateral tenderness, and swelling. - General: Denies upper foot pain. Physical Exam General: Well developed, well nourished, in no acute distress. Appears stated age. Head: Normocephalic, atraumatic. Musculoskeletal: Antalgic gait favoring R side Pulses: Peripheral pulses are equal and palpable bilaterally. Extremities: No clubbing, cyanosis nor edema is noted. Right foot and ankle with swelling and tenderness. Psych: Mood and affect appropriate. Diagnostic results [facility] [place] [address] XRay Report Signed Patient: Micah Aguirre MR#: [id number] : 2000 Acct:[id number] Age/Sex: 25 / F ADM Date: 06/18/25 Loc: HO.[facility]ician: Selene Stoddard Date of Service: 06/18/25 Procedure(s): XR ankle RT 2V Accession Number(s): [id number] cc: Olivia Martinez MD; Selene Stoddard~ Reason for Exam: S99.911A - Unspecified injury of right ankle, initial encounter CLINICAL HISTORY: S99.911A - Unspecified injury of right ankle, initial encounter 2 view right ankle Comparison: None provided Findings: 7 mm ossific body distal to the lateral malleolus of uncertain age. No dislocation. Symmetric ankle mortise. No significant arthritic change or erosions. No ankle effusion. No radiopaque foreign body. IMPRESSION: There is a bone fragment distal to the lateral malleolus of uncertain age. This document has been electronically signed by: Radha Goodrich MD on 06/18/2025 13:39:33 [facility] [address] [place] [address] [place] [address] XRay Report Signed Patient: Micah Aguirre MR#: [id number] : 2000 Acct:[id number] Age/Sex: 25 / F ADM Date: 06/18/25 Loc: .[facility]MGX Attending Dr: Selene ZARAGOZA Ordering Physician: Selene Stoddard Date of Service: 06/18/25 Procedure(s): XR foot RT min 3V Accession Number(s): [id number] cc: Olivia Martinez MD; Selene Stoddard~ Reason for Exam: S99.911A - Unspecified injury of right ankle, initial encounter CLINICAL HISTORY: S99.911A - Unspecified injury of right ankle, initial encounter 3 view right foot Comparison: None provided Findings: Bones intact. No dislocations. No significant arthritic change or erosions. No ankle effusion. No radiopaque foreign body. IMPRESSION: 1. No acute findings. This document has been electronically signed by: Radha Goodrich MD on 06/18/2025 13:40:04 Discussion Notes I discussed with the patient the diagnosis of a right ankle sprain based on the reported mechanism of injury and symptoms. I emphasized the importance of using a lace-up immobilizer to stabilize the ankle and to keep it in place to prevent further injury. Crutches will be utilized with advice to be weight-bearing as tolerated to aid healing and prevent deterioration. The necessity for the immobilizer to be worn during the day and removed at night was discussed. The patient agreed with the treatment plan and will follow up with a foot and ankle specialist within the [facility]. We set work restrictions for the next two weeks. I informed the patient of the longer-term recovery process, estimating a potential recovery period extending over a few weeks. The importance of icing and taking ibuprofen for pain relief and inflammation control was communicated. Furthermore, I advised specific ankle exercises for mobility. Consent was obtained for sharing test results via our portal, which the patient will access using a newly created account. Follow-up planning includes getting the necessary work exemption paperwork completed and ongoing assessment. Patient was given time to ask questions. All questions were answered to their satisfaction. Assessment and Plan 1. Right ankle sprain - Lace-up immobilizer prescribed; use du ring day only. - Crutches for partial weight-bearing. - 800 mg ibuprofen TID for pain and infl ammation. - RICE protocol emphasized. - Ankle exercises recommended. - Referral to foot and ankle specialist. - Two-week work leave advised. - Consent for portal access obtained. Patient Instructions - Wear the lace-up brace during the day and remove it at night. - Use crutches and limit weight on the i njured foot as much as possible. - Take 800 mg ibuprofen three times a da y with food for pain. - Rest and elevate the foot when possibl e; apply ice as needed. - Practice ankle exercises by tracing th e alphabet with your toes. - Complete and submit work exemption pap erwork. Consent Patient was informed and verbally consented to the use of an ambient scribe for clinic note documentation during this visit. Total time spent caring for the patient today was 30 minutes. This includes time spent before the visit reviewing the chart, time spent during the visit, and time spent after the visit on documentation, reviewing laboratory results, diagnostic imaging, medications, performing a medically necessary evaluation, counseling on diagnoses, care coordination, ordering appropriate tests, ordering appropriate medications, review of tests performed by other providers, reporting test results with the patient, communication with other healthcare providers. [facility] Medical History Chronic GERD Cyst, breast Cyst, breast Social History Alcohol intake: current Alcohol intake frequency: a few times a month Comment: Socially. Patient Tobacco Use Status: Never used Tobacco Physical Exam Vital Signs: Last Vital Signs Temp 97.9 F 06/18/25 13:06 Pulse 93 06/18/25 13:06 Resp 16 06/18/25 13:06 BP 98/70 06/18/25 13:06 Pulse Ox 100 06/18/25 13:06 Oxygen Delivery Method Room Air 06/18/25 13:06 BMI result Body Mass Index 22.3 Extrem Right lower extremity: normal capillary refill and ankle Details: tenderness Location: of the lateral malleolus, of the anterior talofibular ligament and anterolaterally, swelling Details: laterally and anteriorly, edema Details: non- pitting, abnormal ROM Details: pain with active ROM Details: with plantar flexion, with dorsiflexion, with inversion and with eversion and pain with passive ROM Details: with plantar flexion, with dorsiflexion, with inversion and with eversion and ecchymosis (NO) Assessment & Plan Assessment & Plan (1) Moderate right ankle sprain: Code(s): S93.401A - Sprain of unspecified ligament of right ankle, initial encounter Qualifiers: Encounter type: initial encounter Qualified Code(s): S93.401A - Sprain of unspecified ligament of right ankle, initial encounter (2) Encounter related to worker's compensation claim: Code(s): Z02.6 - Encounter for examination for insurance purposes (3) Fragmented bone: Code(s): T14.8XXA - Other injury of unspecified body region, initial encounter Plan . Orders: Orders XR foot RT min 3V Today S99.911A - Unspecified injury of right ankle, initial encounter, S99.921A - Unspecified injury of right foot, initial encounter Referrals Podiatry Referral S93.401A - Sprain of unspecified ligament of right ankle, initial encounter, Z02.6 - Encounter for examination for insurance purposes Patient Instructions: Patient Instructions - Wear the lace-up brace during the day and remove it at night. - Use crutches and limit weight on the injured foot as much as possible. - Take 800 mg ibuprofen three times a day with food for pain. - Rest and elevate the foot when possible; apply ice as needed. - Practice ankle exercises by tracing the alphabet with your toes. - Complete and submit work exemption paperwork. Coding Level of Care Code Est Pt Level 4 (95040) Diagnoses Moderate right ankle sprain, initial encounter S93.401A Encounter type: initial encounter Encounter related to worker's compensation claim Z02.6 Fragmented bone T14.8XXA
== END 2025-06-18 13:38 | disposition home or self-care (01) ==
PROVIDERS: PCP Internal Medicine; Visit Provider Nurse Practitioner Family
DX: S93.401A Sprain of unspecified ligament of right ankle, initial encounter (principal); T14.8XXA Other injury of unspecified body region, initial encounter

== ENCOUNTER → 2025-06-18 12:56 | Outpatient (BNV) | payer OTHER, SELFPAY | PROVIDERS: PCP Internal Medicine; Visit Provider Radiology Diagnostic Radiology | DX: S99.911A Unspecified injury of right ankle, initial encounter (principal) | CPT/HCPCS: 73600; 73630 ==

== ENCOUNTER 2025-09-29 10:21 | Outpatient (AMB) | payer OTHER, SELFPAY ==
--- NOTE | 2025-09-29 10:23 | A.OFFPC_ITS ---
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 Accompanied by: Self / Same As Patient Allergies No Known Allergies (No Known Allergies*) Allergy (Verified 09/29/25 10:23) Medication List - Last Reconciled 09/29/25 by Olivia Martinez MD No Known Home Meds Tobacco use date assessed: 09/29/25 Dental Screening Dental Screen Date: 09/29/25 Did you have a dental visit in the last 12 months?: Yes Did you have a dental problem in the last 6 months where you did not have access to dental care?: No Was dental information given to patient?: Patient has dentist HPI HPI Comments History of Present Illness Details The patient is a 25 year old female presenting to [facility]. 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 A recent biopsy at [facility] confirmed a fibroadenoma, which is reportedly small and not currently causing pain. She denies any associated nipple discharge. Ankle ligament tear: Three months ago, the patient sustained a work-related injury, tearing ligaments in her ankle after it rolled. She has been out of work since the injury and is scheduled to return to light duty. Her physical therapy has been extended because her ankle remains unstable. Works for [employer]. Considering a federal job opportunity. History of abdominal pain: The patient reports her previous abdominal pain has resolved. She notes that the pain was associated with constipation or certain foods, describing it as an acid reflux-type sensation. She has been managing this by monitoring her diet, incr easing fiber, and drinking tea. Health Maintenance: The patient has not seen a polytechnic teacher in a while [facility] Medical History (Updated 09/29/25 @ 17:14 by Olivia Martinez MD) Routine gynecological examination Routine medical exam Fibroadenoma Chronic GERD Cyst, breast Cyst, breast Surgical History (Updated 09/29/25 @ 08:06 by Olivia Martinez MD) H/O wisdom tooth extraction H/O breast surgery Family History (Updated 09/29/25 @ 10:27 by Monique Pham [facility]) Mother Substance abuse Father Substance abuse Other Generalized anxiety disorder Social History Housing: Apartment Alcohol intake: current Alcohol intake frequency: a few times a month Comment: Socially. 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 1. Little interest or pleasure in doing things: not at all 2. Feeling down, depressed, or hopeless: not at all 3. Trouble falling or staying asleep, or sleeping too much: not at all 4. Feeling tired or having little energy: not at all 5. Poor appetite or overeating: not at all 6. Feeling bad about yourself - or that you are a failure or have let yourself or your family down: not at all 7. Trouble concentrating on things, such as reading the newspaper or watching television: not at all 8. Moving or speaking so slowly that other people could have noticed. Or the opposite - being so fidgety or restless that you have been moving around a lot more than usual: not at all 9. Thoughts that you would be better off or of hurting yourself in some way: not at all Total score: 0 Depression Screening Interpretation: Negative Depression Screening Done: Yes [id number] - PHQ-9 Billing: Yes Source: Developed by Drs. Cirilo Patterson, Heather Barone, Kimani Melgar and colleagues, with an educational barrett from [employer]. Thrive Questionnaire Date Thrive assessed: 09/29/25 I am a: Patient What is your living situation today?: I have a steady place to live Within the past 12 months, did the food you bought not last and you didn't have the money to get more?: I choose not to answer this question Within the past 12 months, did you worry whether your food would run out before you got money to buy more?: I choose not to answer this question Do you have trouble paying for medicines?: No Do you have trouble getting transportation to medical appointments?: No Do you have trouble paying your heating and electricity bill?: No Do you have trouble taking care of your child, family member or friend?: No Do you have trouble with day-to-day activities such as bathing, preparing meals, shopping, managing finances, etc.?: No Are you currently unemployed and looking for a job?: No Are you interested in more education?: No Please select the resources that you would like help with: None Currently or been in a relationship where the following occur: No concerns reported THRIVE Score: 0 AUDIT C Alcohol Use Questionnaire (AUDIT-C) 1. How often do you have a drink containing alcohol?: Monthly or less 2. How many drinks containing alcohol do you have on a typical day when you are drinking?: 1 or 2 3. How often do you have six or more drinks on one occasion?: Never Total Score: 1 CARLIE-7 AMB Questionnaire CARLIE-7 Date CARLIE - 7 assessed: 09/29/25 Feeling nervous, anxious, or on edge: 0 = Not at all Not being able to stop or control worryin = Not at all Worrying too much about different things: 0 = Not at all Trouble relaxin = Not at all Being so restless that it is hard to sit still: 0 = Not at all Becoming easily annoyed or irritable: 0 = Not at all Feeling afraid as if something awful might happen: 0 = Not at all Total CARLIE-7 score (0-4 normal; 5-9 mild; 10-14 moderate; 15-21 severe): 0 Source: Developed by Drs. Cirilo Patterson, Heather Barone, Kimani Melgar and colleagues, with an educational barrett from [employer]. Review of Systems Narrative Review of Systems - Breast: Reports history of fibroadenomas in one breast. - Denies current breast pain or nipple discharge. - Gastrointestinal: Reports historical abdominal pain which has resolved. - Musculoskeletal: Reports residual instability in her ankle following a ligament tear three months ago. Physical exam (Primary Care) Vital Signs: Last Vital Signs Temp 97.3 F 09/29/25 10:25 Pulse 87 09/29/25 10:25 Resp 16 09/29/25 10:25 BP 98/70 09/29/25 10:25 Pulse Ox 97 09/29/25 10:25 Oxygen Delivery Method Room Air 09/29/25 10:25 BMI result Body Mass Index 23.1 Tobacco/Smoking Status: Tobacco use Status Tobacco use date assessed 09/29/25 09/29/25 10:29 Patient Tobacco Use Status Never used Tobacco 09/29/25 10:29 e-Cigarette/Vaping Use Never Used 09/29/25 10:29 PHQ-9: PHQ-9 Score PHQ-9: Total score 0 09/29/25 10:29 Depression Screening Interpretation: Negative Thrive Assessment: Date of Thrive Assessment Date Thrive assessed 09/29/25 12 10:29 Currently or been in a relationship where the following occur: No concerns reported Narrative Physical Exam - Cardiovascular: Normal rate and rhythm on auscultation. - Respiratory: Lungs are clear to auscultation bilaterally; no wheezing noted. - Abdomen: soft, non-tender to palpation. Normal bowel sounds. Coding Level of Care Code Est Pt Level 4 (25215) Add On Problem Visit Only Diagnoses Fibroadenoma of breast, unspecified laterality D24.9 Laterality: unspecified laterality Epigastric abdominal pain R10.13 Additional Codes PHQ-9 - 66697 - PHQ-9 Billing: Yes ([id number]) Assessment & Plan Assessment & Plan (1) Fibroadenoma: Code(s): D24.9 - Benign neoplasm of unspecified breast Category: Medical Qualifiers: Laterality: unspecified laterality Qualified Code(s): D24.9 - Benign neoplasm of unspecified breast (2) Epigastric abdominal pain: Code(s): R10.13 - Epigastric pain Category: Medical Plan Assessment and Plan 1. Re-establishing care - The patient is a 25-year-old female presenting to re-establish primary care. - a plan was made to obtain baseline labs and schedule her for a physical examination. 2. Fibroadenoma of breast - She has a history of fibroadenoma, recently confirmed by biopsy, which is currently asymptomatic. - a plan was made to refer her to gynecology for continued monitoring and routine care. 3. History of abdominal pain - Her abdominal pain has resolved with dietary modifications, including increased fiber. - She will continue to self-manage with diet. 4. Ankle sprain - She has persistent instability from a work-related ankle ligament tear and is undergoing physical therapy. - She will continue with her current treatment plan [facility] compensation and remain on light duty. 5. Health maintenance - Labs have been ordered, including a liver and kidney panel, cholesterol profile, and thyroid studies. -follow up in Spring for physical Plan - Laboratory studies ordered: liver panel, kidney panel, cholesterol profile, and thyroid studies. - Referral: Placed a referral to gynecology. - Patient advised to continue with physical therapy for her ankle instability and adhere to light duty work restrictions. - Patient encouraged to continue dietary modifications for management of her gastrointestinal symptoms. - Follow-up: Scheduled for a physical examination in December. Patient Instructions - Please go to the lab to have your blood drawn for tests that check your liver, kidneys, cholesterol, and thyroid. - A referral has been sent to a gynecology specialist. - Continue with your physical therapy for your ankle injury and follow your light duty restrictions at work. Orders: Orders Comprehensive Met. Panel Today Z00.00 - Encounter for general adult medical examination without abnormal findings Complete Blood Count Auto Diff Today Z00.00 - Encounter for general adult medical examination without abnormal findings Lipid Panel Today Z00.00 - Encounter for general adult medical examination without abnormal findings TSH reflex Free T4 Today Z00.00 - Encounter for general adult medical examination without abnormal findings Referrals [employer] Referral D24.9 - Benign neoplasm of unspecified breast, Z01.419 - Encounter for gynecological examination (general) (routine) without abnormal findings
[2025-09-29 10:25] VITALS: BP 98/70; PULSE 87; RESP 16; TEMP 36.3; O2SAT 97; BMI 23.1
== END 2025-09-29 10:54 | disposition home or self-care (01) ==
LOC: HO.HMCHD 10:22
PROVIDERS: PCP Internal Medicine; Visit Provider Internal Medicine
DX: D24.9 Benign neoplasm of unspecified breast (principal); R10.13 Epigastric pain

== ENCOUNTER 2025-09-29 11:06 | Outpatient (REF) | payer OTHER, SELFPAY ==
[2025-09-29 13:07] LABS: MANUAL DIFF FLAG NO
[2025-09-29 13:11] LABS: Hematocrit 40.3 % (37.0-47.0); Hemoglobin 13.4 g/dl (12.0-16.0); Imm Gran Abs Auto 0.01 X10*3/uL (0.00-0.03); Imm Gran Pct Auto 0.2 % (0.0-0.4); Lymphocytes Absolute Auto 1.5 X10*3/uL (1.2-4.9); Mean Corpuscular HGB Conc 33.3 g/dl (31.0-35.0); Mean Corpuscular Hemoglobin 30.5 pg (27.0-33.0); Mean Corpuscular Volume 91.6 fL (80.0-98.0); NRBC Abs Auto 0.000 X10*3/uL (0.0-0.012); NRBC Pct Auto 0.0 /100WBC (0.0-0.2); Platelet Count 292 X10*3/uL (160-400); Red Blood Count 4.40 X10*6/uL (4.20-5.50); White Blood Count 4.3 X10*3/uL (4.8-10.8)
[2025-09-29 14:02] LABS: Alanine Aminotransferase 17 U/L (0-31); Albumin Level 4.4 g/dL (3.5-5.0); Alkaline Phosphatase 74 U/L (39-117); Anion Gap 10 (12-20); Aspartate Amino Transferase 34 U/L (5-31); Blood Urea Nitrogen 10 mg/dL (9-16); Calcium 9.1 mg/dL (8.4-10.2); Carbon Dioxide 27 mmol/L (22-29); Chloride 106 mmol/L (96-108); Cholesterol 190 mg/dL (<200); Estimated Glomerular Filt Rate > 60; HDL Cholesterol 64 mg/dL (>40); Potassium 4.4 mmol/L (3.3-5.1); Sodium 139 mmol/L (135-145); Total Protein 7.3 g/dL (6.5-8.0); Triglycerides 68 mg/dL (<150)
== END 2025-09-29 11:07 | disposition home or self-care (01) ==
LOC: HO.10HDL 11:06
PROVIDERS: Visit Provider Internal Medicine
DX: Z00.00 Encounter for general adult medical examination without abnormal findings (principal); Z13.6 Encounter for screening for cardiovascular disorders; Z13.29 Encounter for screening for other suspected endocrine disorder; Z13.0 Encounter for screening for diseases of the blood and blood-forming organs and certain disorders involving the immune mechanism
CPT/HCPCS: 36415; 80053; 80061; 84443; 85025